=== PATIENT | male | born 1960 | race Two or more races ===

== ENCOUNTER 2022-10-10 10:18 | Inpatient (IN) | payer MEDICAID ==
[~2022-10-10] VITALS: Ht 170.2 cm; Wt 98.3 kg
[2022-10-10] MEDS ORDERED: SODIUM CHLORIDE 0.9% 1,000 ML IV ONE (10:45)
[2022-10-10 10:59] LABS: Basophils # (auto) 0.1 10 ^3/uL (0-0.2); Basophils % (auto) 1.4 % (0.0-2.0); Eosinophils # (auto) 0.2 10 ^3/uL (0-0.8); Eosinophils % (auto) 2.6 % (0.0-7.0); Hematocrit 45.3 % (41.0-53.0); Hemoglobin 15.7 g/dL (13.5-17.5); Lymphocytes # (auto) 1.8 10 ^3/uL (0.4-5.4); Lymphocytes % (auto) 19.1 % (10.0-50.0); Mean Corpuscular Hemoglobin 31.4 pg (28.0-32.0); Mean Corpuscular Hgb Conc. 34.6 g/dL (32.0-36.0); Monocytes # (auto) 0.6 10 ^3/uL (0-1.3); Neutrophils # (auto) 6.8 10 ^3/uL (1.6-8.6); Neutrophils % (auto) 70.9 % (37.0-80.0); Nucleated Red Blood Cells % 0.2 %; Red Blood Cells 4.98 10^6/uL (4.5-5.90); Red Cell Distribution Width 14.5 % (11.8-14.3); White Blood Cell 9.6 10^3/uL (4.4-10.8)
[2022-10-10 11:22] LABS: Albumin 3.3 g/dL (3.4-5.0); Calcium 8.7 mg/dL (8.5-10.1); Potassium 3.8 mmol/L (3.5-5.1)
[2022-10-10 11:25] LABS: BUN/Creatinine Ratio 15.7 (10.0-20.0); Bilirubin, Total 0.9 mg/dL (0.2-1.0); Total Protein 6.9 g/dL (6.4-8.2)
[2022-10-10 11:54] LABS: Urine WBC None Seen /hpf (0 - 3)
[2022-10-10 12:14] LABS: Urine Bacteria NONE SEEN /hpf (None Seen); Urine Blood Negative /uL (Negative); Urine Specific Gravity 1.005 (1.001-1.035)
[2022-10-10] MEDS ORDERED: IOHEXOL 300 MG/ML 100ML BOTTLE IJ ONE (20:27)
[2022-10-10] MEDS ORDERED: hydrALAZINE HCL 20 MG/ML VL IV PRN (22:30)
[2022-10-10] MEDS ORDERED: IBUPROFEN 600 MG TAB PO PRN (22:30)
[2022-10-10] MEDS ORDERED: ONDANSETRON HCL 4 MG/2 ML VIAL IV PRN (22:30)
[2022-10-10] MEDS ORDERED: DOCUSATE SOD 100 MG CAP PO PRN (22:30)
[2022-10-10] MEDS ORDERED: HYDROcodone-ACET 5/325MG TAB PO PRN (22:30)
[2022-10-10] MEDS ORDERED: MORPHINE SULFATE INJ 2 MG/ml SYRG IV PRN (22:30)
[2022-10-11] MEDS ORDERED: MORPHINE SULFATE INJ 2 MG/ml SYRG IV PRN
[2022-10-11] MEDS ORDERED: NITROGLYCERIN 0.4 MG SL TAB SL PRN
[2022-10-11 05:15] LABS: Basophils # (auto) 0.1 10 ^3/uL (0-0.2); Basophils % (auto) 0.7 % (0.0-2.0); Eosinophils # (auto) 0.2 10 ^3/uL (0-0.8); Eosinophils % (auto) 2.6 % (0.0-7.0); Hematocrit 43.1 % (41.0-53.0); Hemoglobin 15.1 g/dL (13.5-17.5); Lymphocytes # (auto) 1.9 10 ^3/uL (0.4-5.4); Lymphocytes % (auto) 20.7 % (10.0-50.0); Mean Corpuscular Hemoglobin 32.1 pg (28.0-32.0); Mean Corpuscular Hgb Conc. 34.9 g/dL (32.0-36.0); Mean Corpuscular Volume 91.9 fL (80.0-100.0); Monocytes # (auto) 0.7 10 ^3/uL (0-1.3); Neutrophils # (auto) 6.2 10 ^3/uL (1.6-8.6); Nucleated Red Blood Cells % 0.3 %; Red Blood Cells 4.69 10^6/uL (4.5-5.90); Red Cell Distribution Width 14.5 % (11.8-14.3); White Blood Cell 9.1 10^3/uL (4.4-10.8)
[2022-10-11 05:31] LABS: Albumin 3.4 g/dL (3.4-5.0); BUN/Creatinine Ratio 19.1 (10.0-20.0); Calcium 8.5 mg/dL (8.5-10.1); Potassium 3.7 mmol/L (3.5-5.1)
[2022-10-11 05:34] LABS: Bilirubin, Total 0.6 mg/dL (0.2-1.0); Total Protein 7.3 g/dL (6.4-8.2)
[2022-10-11] MEDS: SODIUM CHLORIDE 0.9% 1,000 ML IV SCH ×2 (06:47→16:10)
[2022-10-11] MEDS: FAMOTIDINE (10MG/ML) 2ML VL IV SCH ×2 (10:37→22:06)
[2022-10-12] MEDS ORDERED: LISI2.5T47 PO (00:57)
[2022-10-12 05:02] VITALS: BP 168/78
[2022-10-12 05:16] LABS: Potassium 4.1 mmol/L (3.5-5.1)
[2022-10-12 05:25] LABS: Albumin 3.2 g/dL (3.4-5.0); BUN/Creatinine Ratio 22.1 (10.0-20.0); Calcium 8.6 mg/dL (8.5-10.1)
[2022-10-12 05:28] LABS: Bilirubin, Total 0.8 mg/dL (0.2-1.0); Total Protein 6.9 g/dL (6.4-8.2)
[2022-10-12] MEDS ORDERED: LISI-716 PO (10:57)
[2022-10-12] MEDS ORDERED: PANT40T PO (10:57)
[2022-10-12 12:07] LABS: Hepatitis A Total Antibody Positive (Negative); Hepatitis B Surface Antibody Negative (Negative)
[2022-10-12 14:26] LABS: Hepatitis C Antibody Negative (Negative)
== END 2022-10-12 06:13 | disposition left against medical advice (07) ==
LOC: ER 10:18 → OVERFLOW 23:48
PROVIDERS: ADMIT Nurse Practitioner Family; ATTEND Nurse Practitioner Acute Care
DX: K76.0 Fatty (change of) liver, not elsewhere classified (principal); E87.1 Hypo-osmolality and hyponatremia; E66.9 Obesity, unspecified; R10.9 Unspecified abdominal pain; G47.00 Insomnia, unspecified; I10 Essential (primary) hypertension; K21.9 Gastro-esophageal reflux disease without esophagitis; Z68.33 Body mass index [BMI] 33.0-33.9, adult
CPT/HCPCS: 36415; 71046; 74177; 76705; 80053; 81001; 83690; 84484; 85025; 86704; 86706; 86708; 86803; 87340; 93005; 96360; 97163; G0378; J3490